=== PATIENT | female | born 2000 | race Caucasian/White ===

== ENCOUNTER 2021-10-22 19:00 | Emergency (ER) | payer BC ==
[2021-10-22 19:56] LABS: HEMOGLOBIN 14.8 gm/dl (12.3-15.3); RED BLOOD COUNT 4.81 M/UL (4.00-5.10)
[2021-10-22 20:18] LABS: BUN/CREATININE RATIO 23 (0-10)
[2021-10-23] MEDS ORDERED: BENTYL 20MG TAB20 MG PO (01:01)
[2021-10-23] MEDS ORDERED: OMNICEF 300 MG300 MG PO (01:01)
[2021-10-23] MEDS ORDERED: REGLAN10 MG PO (01:01)
[2021-10-23] MEDS ORDERED: MACROBID 100 M100 MG PO (01:10)
== END 2021-10-23 01:31 | disposition home or self-care (01) ==
LOC: ER1 19:00
PROVIDERS: Physician Assistant
DX: O23.41 Unspecified infection of urinary tract in pregnancy, first trimester (principal); N39.0 Urinary tract infection, site not specified; Z3A.01 Less than 8 weeks gestation of pregnancy
CPT/HCPCS: 76817; 80053; 81001; 82150; 83690; 84702; 85025; 87086; 99284